=== PATIENT | male | born 1995 | race Caucasian/White ===

== ENCOUNTER 2019-04-11 06:24 | Day surgery (SDC) | payer OTHER ==
[2019-04-11] MEDS ORDERED: GLYCOPYRROLATE 1 MG/5 ML VIAL IVP ONE (06:25)
[2019-04-11] MEDS ORDERED: DEXAMETHASONE 4 MG/ML VIAL IVP ONE (06:25)
[2019-04-11] MEDS ORDERED: MIDAZOLAM 2 MG/2 ML VIAL IVP ONE (06:25)
[2019-04-11] MEDS ORDERED: KETOROLAC 30 MG/ML VIAL IVP ONE (06:25)
[2019-04-11] MEDS ORDERED: fentaNYL 100 MCG/2 ML VIAL IVP ONE (06:25)
[2019-04-11] MEDS ORDERED: PROPOFOL 200 MG/20 ML VIAL IVP ONE (06:25)
[2019-04-11] MEDS ORDERED: NEOSTIGMINE 1 MG/1 ML 10 ML MDV IVP ONE (06:25)
[2019-04-11] MEDS ORDERED: LACTATED RINGERS 1,000 ML IV ONE ×3 (06:32→09:01)
[2019-04-11] MEDS ORDERED: cefTRIAXone 2 GM VIAL ONE (06:40)
--- NOTE | 2019-04-11 07:18 | ANESTHESIA ---
Pre-Anesthesia VS, & Labs - Diagnosis L shoulder labral tear - Procedure L shoulder scope w SLAP repair Vital Signs: Temp Pulse Resp BP Pulse Ox 36.3 C L 57 L 16 126/72 97 04/11/19 06:44 04/11/19 06:44 04/11/19 06:44 04/11/19 06:44 04/11/19 06:44 Height 5 ft 10 in Weight (kg) 88.45 kg - NPO >8 hours Home Medications and Allergies Home Medications: Ambulatory Orders Multivitamin [Multivitamins] 1 each PO 04/03/19 Multivitamin [Multivitamins] 1 each PO 04/03/19 Allergies/Adverse Reactions: Allergies Allergy/AdvReac Type Severity Reaction Status Date / Time No Known Drug Allergies Allergy Verified 04/03/19 10:45 Anes History & Medical History - Anesthetic History Anesthesia Complications: reports: No previous complications Family history of Anesthesia Complications: Denies Family history of Malignant Hyperthermia: Denies - Medical History Cardiovascular: reports: None Pulmonary: reports: None Gastrointestinal: reports: None Urinary: reports: None Musculoskeletal: reports: Other Endocrine/Autoimmune: reports: None Skin: reports: None - Surgical History General: Other Exam General: Alert, Oriented x3, Cooperative Dental: WNL Mouth Opening: Greater than 4 Fingerbreadths Neck Mobility: Normal Mallampati classification: I Thyromental Distance: greater than 6 cm Respiratory: Lungs clear, Normal breath sounds, No respiratory distress Cardiovascular: Regular rate Neurological: Normal speech Mental/Cognitive Status: Alert/Oriented X3, Normal for patient Cognitive Status: Within normal limits Plan Anesthesia Type: General, Supraclavicular Block Consent for Procedure(s) Verified and Reviewed: Yes Code Status: Attempt Resuscitation ASA classification: 1-Healthy patient Is this case an emergency?: No
[2019-04-11] MEDS ORDERED: EPINEPHrine 1 MG/ML AMP ONE (07:32)
[2019-04-11] MEDS ORDERED: EPINEPHrine 1 MG/ML AMP IR ONE (08:47)
[2019-04-11] MEDS ORDERED: ONDANSETRON 4 MG/2 ML VIAL IVP PRN (12:37)
[2019-04-11] MEDS ORDERED: oxyCODONE 5 MG TABLET PO PRN (12:37)
--- NOTE | 2019-04-11 12:56 | OPERATIVE REPORT ---
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 Pendulum exercises 5 times per day. 2-6 weeks-Passive range of motion with the following limits: FF to 90, ER to 45, abduction to 45 6-12 weeks-Active range of motion in all planes without limitation. Rotator cuff strengthening is allowed 12-16 weeks-Gradually increase strengthening 16 weeks and beyond-Introduce dynamic activities EXAMINATION UNDER ANESTHESIA: ROM: Full Anterior load and shift: Grade 2 instability with click Posterior load and shift: Normal Inferior sulcus: Normal ARTHROSCOPIC FINDINGS: Rotator interval: Normal Biceps tendon & SLAP: Normal Subscapularis: Normal Rotator Cuff: Normal HAGL: Anterior Hagel present from 6:00 to 4:00 Labrum: Tear of the anterior labrum from 4:00 till 2:00 with incorporation of the tear of the middle glenohumeral ligament Glenoid Cartilage: Small lesion on the anterior rim adjacent to the labral tear Humeral Head Cartilage: Normal INDICATION FOR SURGERY: 23-year-old male dislocated his left shoulder while diving for a ground ball a few months ago. Physical therapy did not restore stability and he had significant anatomic injuries on his MRI. Nonoperative managment failed to resolve symptoms. The risks, benefits, and alternatives were discussed. Risks included pain, bleeding, infection, damage to nearby structures, lack of symptom relief, implant complications, stiffness, need for further surgeries, DVT, PE, stroke, and even . He signed a written consent form. PROCEDURE IN DETAIL: The patient was met in the preoperative holding on the day of the procedure. Operative extremity was signed. Consent was verified. He desired to proceed. Regional anesthesia was obtained in the preoperative area. They were brought to the operating room and surrendered to anesthesia. Once general anesthesia was obtained they were placed in the lateral decubitus position with the operative side up. An axillary roll was placed and all bony prominences were well-padded. They were then prepped and draped in the standard sterile fashion. A surgical timeout was held to confirm the patient procedure, identity, procedure, laterality, allergies, images, and antibiotics. All were in agreement we proceeded. Balanced suspension was applied and a standard diagnostic arthroscopy was performed utilizing posterior and anterior superior portal sites. The anterior superior portal site was created under direct visualization. The findings of the diagnostic arthroscopy can be found above. A mid glenoid portal was then created under direct visualization bordering the subscapularis tendon. I then used a combination of high and low angled elevators to develop the labral tear and release it from off the glenoid neck. I then used to the pineapple rasp to finalize my release and abraded the bone to a bleeding bed. A sucker shaver was placed in the interval to debride any loose tissue and further abrade the glenoid neck. Any loose cartilage was debrided at that time. I used a suture lasso to pass a tagging suture through the avulsed glenohumeral ligament and passed the sutures out the posterior portal. I then placed anchors at the 4:00 position. The suture was passed using an appropriate 45 degree suture lasso. The labrum was secured using knotless technique. Appropriate tension was confirmed with a probe and the excess suture was cut. Using the same technique additional anchors were placed at 3:00. Proper capsular tension was restored and a labral bumper was recreated. Balanced suspension was then released. The portal sites were then closed with 3-0 Monocryl buried. And a sterile Ioban was placed over them. The drapes were then removed and the patient was repositioned in the beachchair position. The Ioban was then removed and he was prepped and draped again. The mid glenoid portal was extended approximately 6 cm into the axillary crease. Letter cautery was used to obtain hemostasis. Scissor dissection was used to identify the deltopectoral interval and the cephalic vein was identified. The interval was entered with the cephalic vein traveling laterally. I then identified the conjoined tendon and retracted gently medially and the deltoid laterally exposing the subscapularis. The anterior humeral circumflex vessels were visible. The inferior 1 cm of the subscapularis was incised vertically 1 cm from its insertion on the lesser tuberosity. I took care to protect the anterior humeral circumflex vessels and then freed the inferior border of the subscap along the edge of those vessels. I then placed a tacking stitch and used a [place] to tease in the anterior capsule off the backside of the subscapularis. My prior arthroscopically placed tagging stitch in the capsule was visualized. I then adequately freed up the capsule from the subscap and surrounding tissue and identified its [place] footprint on the humerus. This area was debrided and a rasp was used to obtain a bed of bleeding bone. I then internally and externally rotated the arm to identify the cartilage and placed to swivel lock anchors appropriately spaced along the edge of the cartilage at the anatomic footprint of the capsule. A fiber tape was added to the most inferior swivel lock. I then passed all sutures in a horizontal mattress fashion and then reduced and tied the capsule back to the humerus. The arm was then rotated and ensured in excellent repair had been performed. The wound was then irrigated copiously and the subscapularis was closed with FiberWire from the tendon into the stump. This anchor did very nicely and additional suture anchors were not required. The deltopectoral fascia was closed with 0 Vicryl and then the dermis was closed with 2-0 Vicryl. A running Monocryl was placed just beneath the skin and Steri-Strips were applied. A sterile dressing was placed and a sling was applied. He was awakened and transferred to the recovery room.
[2019-04-11 13:49] VITALS: BP 124/75
== END 2019-04-11 06:25 | disposition home or self-care (01) ==
LOC: SDS 06:24
PROVIDERS: ATTEND Orthopaedic Surgery
PROC: 0RQK4ZZ Repair Left Shoulder Joint, Percutaneous Endoscopic Approach (ICD-10-PCS; 2019-04-11)
PROC: 0MQ20ZZ Repair Left Shoulder Bursa and Ligament, Open Approach (ICD-10-PCS; principal; 2019-04-11 07:30)
DX: S43.432A Superior glenoid labrum lesion of left shoulder, initial encounter (principal); S43.492A Other sprain of left shoulder joint, initial encounter; X50.0XXA Overexertion from strenuous movement or load, initial encounter; Y93.64 Activity, baseball; Y92.320 Baseball field as the place of occurrence of the external cause; Y99.8 Other external cause status
CPT/HCPCS: 23929; 29806; C1713; J7120